=== PATIENT | male | born 1995 | race Caucasian/White ===

== ENCOUNTER 2019-11-14 15:24 | Emergency (ER) | payer BC ==
[~2019-11-14] VITALS: Ht 177.8 cm; Wt 107.9 kg
[2019-11-14 15:25] VITALS: BP 135/91
[2019-11-14] MEDS ORDERED: PREDNISONE 20MG TABLET PO STA (15:42)
[2019-11-14] MEDS ORDERED: FAMOTIDINE 20MG TABLET PO ONE (15:45)
== END 2019-11-14 16:40 | disposition home or self-care (01) ==
LOC: ER 15:24
DX: T78.1XXA Other adverse food reactions, not elsewhere classified, initial encounter (principal); J45.909 Unspecified asthma, uncomplicated; Z88.0 Allergy status to penicillin; X58.XXXA Exposure to other specified factors, initial encounter
CPT/HCPCS: 99283; J7512